=== PATIENT | male | born 1955 | race Caucasian/White ===

== ENCOUNTER 2018-09-09 12:07 | Emergency (ER) | payer BC ==
--- OUTSIDE RECORDS SUMMARY | 2018-09-09 12:17 | XMS REPORT | Continuity of Care Document ---
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 PayID: [id number] [address] [address] [place] [address] Problems Active Problems Provider Date Mixed hyperlipidemia Jacinta Saucedo MD Onset: 02/22/2014 Benign neoplasm of colon Jacinta Saucedo MD Onset: 07/06/2012 Headache Jacinta Saucedo MD Onset: 12/25/2010 Ganglion cyst of tendon sheath Jacinta Saucedo MD Onset: 12/25/2010 Low back pain Jacinta Saucedo MD Onset: 12/12/2008 Dyssomnia Jacinta Saucedo MD Onset: 12/12/2008 Induratio penis plastica Jacinta Saucedo MD Onset: 06/14/2008 Benign prostatic hypertrophy without outflow Jacinta Saucedo MD Onset: obstruction Gout Jacinta Saucedo MD Onset: 11/17/2007 Gastroesophageal reflux disease Jacinta Saucedo MD Onset: 11/17/2007 Benign essential hypertension Jacinta Saucedo MD Onset: 10/13/2006 Ex-smoker Jacinta Saucedo MD Onset: 02/18/2018 Impotence of organic origin Jacinta Saucedo MD Onset: 02/18/2018 Vitamin B deficiency Jacinta Saucedo MD Onset: 07/12/2014 Family History Date Family Member(s) Observation Comments Father due to due to () Aneurysm Father Gout Father CAD Mother Hypercholesterolemia : (age Mother due to Stroke had a second stroke 84 Years) and after 10 days Mother Alzheimer's Disease Children 5 4 girls 1 son all healthy Second Daughter Seizures anatomic problem in her brain, with headaches First Brother Congenital Heart Disease heart valve replaced. 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 Smokeless Tobacco Former Smokeless Tobacco User, Used 8 Times Daily ETOH Use Currently consumes currently 12 pack per alcohol week, on weekends. Tobacco Use Start: Unknown End: Patient is a former smoked age 15 - 30 ; smoker 08/27/17 not eligible for lung cancer screening [facility] Document: 08/27/17 - Followup: CPX Male, HTN Rechec Smoking Status Reviewed: 08/28/18 Patient is a former smoked age 15 - 30 ; smoker 08/27/17 not eligible for lung cancer screening [facility] Document: 08/27/17 - Followup: CPX Male, HTN Rechec Allergies, Adverse Reactions, Alerts Description No Known Drug Allergies Medications Active Medications SIG Qnty Indications Ordering Date Provider Sildenafil Citrate take 1 tablet 1 18tabs N52.9 Lewis, 10/22/2017 hour prior to MD Jacinta 50mg Tablets intercourse Omeprazole take 1 capsule 100caps K21.9 Lewis, 08/04/2015 20mg every other day for MD Jacinta Capsules DR 1-2 months then as needed Vitamin B-12 1 by mouth every 90tabs E53.9 Lewis, 01/09/2015 day MD Jacinta 1000mcg Tablets Sub K21.9 D51.3 Aspirin Adult Low 1 by mouth every 90tabs E78.2 Jacinta Saucedo MD 01/11 Strength day with food 81mg Tablets DR Atorvastatin Calcium take 1 tablet 90tabs E78.2 Jacinta Saucedo MD 01/11 10mg daily Tablets Allopurinol take 2 tablets 180tabs M10.9 Jacinta Saucedo MD 02/07/2012 100mg Tablets daily Colchicine 1 by mouth daily 90tabs M10.9 Jacinta Saucedo MD 01/06/2012 0.6mg Tablets as needed gout flare Lisinopril take one tablet 90tabs I10 Jacinta Saucedo MD 01/06/2012 20mg Tablets by mouth every day Indomethacin ER take one capsule 60caps M10.9 Jacinta Saucedo MD 2010 75mg by mouth twice a Capsules ER day as needed gout History Medications Azithromycin 2 tablets by 6tabs J20.9 Jordon Bhakta, 03/05/2018 - 250mg mouth on day 1 DO 03/10/2018 Tablets then 1 tablet on days 2-5 Ventolin HFA 2 puffs every 4-6 18units J20.9 Jordon Bhakta, 03/05/2018 - hours as needed DO 08/26/2018 108(90Base) mcg/Act for cough, Aerosol wheezing, shortness of breath Doxycycline Hyclate 1 by mouth twice 28tabs A69.20 Lewis, 08/18/2017 - a day 1 hour MD Jacinta 09/01/[address] before a meal Doxycycline Hyclate 1 by mouth twice 30tabs A69.20 Lewis, 01/20/2017 - a day 1 hour MD Jacinta 02/04/2017 100mg Tablets before a meal Oxycodone-Acetaminop Take 1-2 tablets 45tabs Unknown 10/09/2016 - hen by mouth every 4 11/08/2016 5-325mg Tablets (four) hours as needed Max Daily Amount: 12 tablets Diazepam Take 1 tablet (2 10tabs Unknown 10/09/2016 - 2mg Tablets mg total) by 11/08/2016 mouth nightly as needed (muscle spasm) Max Daily Amount: 2 mg Doxycycline Hyclate 1 by mouth twice 22tabs A69.20 Lewis, 10/09/2016 - a day 1 hour MD Jacinta 01/19/2017 100mg Tablets before meals--total treatment 21 days A69.22 Viagra take one tablet by 90tabs N52.9 Jacinta Saucedo, 01/26/2016 - 50mg mouth one hour prior 10/22/2017 Tablets to intercourse Omeprazole 1 by mouth every day 90tabs K21.9 Jacinta Saucedo, 08/04/2015 - 30min before a meal 08/04/2015 Tablets Omeprazole 1 by mouth every day 90caps K21.9 Jacinta Saucedo, 08/02/2015 - 20mg 30min before a meal 08/04/2015 Capsules Zostavasurya 1 dose, pharmacy to 1units Z23 Jacinta Saucedo, 07/12/2014 - administer, please 01/09/2015 [id number]/0.65ML send our office Solution Rec documentation this was given Vitamin B-12 1 by mouth daily 30tabs E53.9 Jacinta Saucedo, 07/12/2014 - with meal MD 01/09/2015 500mcg Tablets K21.9 D51.3 Metaxalone 1 By Mouth 90tabs M54.5 Jacinta Saucedo MD 07/07/2013 - 800mg Three Times A 08/26/2018 Tablets Day as Needed Prilosec OTC take one tablet 90tabs K21.9 Jacinta Saucedo MD 06/27/2006 - 20mg by mouth every 08/02/2015 Tablets day 30 min before a meal Immunizations CPT Code Status Date Vaccine Reaction Lot # 61796 Given 03/17/2015 Zoster (Zostavax) 34960 Given 07/06/2012 Tdap (Adacel) Ages 7 And Above Only 97139 Given 12/04/2011 Afluria Or Fluvirin Flu Vac Intramuscular 63268 Given 12/25/2010 Afluria Or Fluvirin Flu Vac VIS DATE 10/09/10 Intramuscular 69655 Given 03/17/2005 Immunization Td 7 Yrs Or Older [id number] Refused 02/18/2018 Flu Vaccine NOS WILL NOT GET [id number] Refused 08/27/2017 Flu Vaccine NOS [id number] Refused 02/10/2017 Influenza Virus Vaccine,Quadrivalent,Split,Preserv Free, 0.5mL,[place] [address] Refused 01/26/2016 Influenza Virus Vaccine,Quadrivalent,Split,Preserv Free, 0.5mL,[place] [address] Refused 01/09/2015 Influenza Virus Vaccine,Quadrivalent,Split,Preserv Free, 0.5mL,[place] [address]72 Refused 07/12/2014 Zoster (Zostavax) [id number] Refused 12/15/2013 Influenza Virus Vaccine,Quadrivalent,Split,Preserv Free, 0.5mL,Im Vital Signs Date Vital Result Comment 08/28/2018 1:40pm Weight 228.00 lb Heart Rate 80 /min BP Systolic 138 mmHg BP Diastolic 74 mmHg Respiratory Rate 18 /min Height 68.75 inches 5'8.75" BMI (Body Mass Index) 33.9 kg/m2 03/27/2018 2:55pm Weight 231.00 lb Heart Rate 82 /min BP Systolic 140 mmHg BP Diastolic 80 mmHg Respiratory Rate 20 /min Height 68.75 inches 5'8.75" O2 % BldC Oximetry 98 % Ra BMI (Body Mass Index) 34.4 kg/m2 03/05/2018 11:10am Body Temperature 98.3 F Apap This Am Weight 228.00 lb Heart Rate 66 /min BP Systolic 144 mmHg BP Diastolic 90 mmHg Respiratory Rate 18 /min Height 68.75 inches 5'8.75" O2 % BldC Oximetry 96 % BMI (Body Mass Index) 33.9 kg/m2 02/18/2018 8:19am Weight 226.00 lb Heart Rate 66 /min BP Systolic 148 mmHg BP Diastolic 90 mmHg BP Systolic Recheck 139 mmHg BP Diastolic Recheck 89 mmHg Respiratory Rate 18 /min Height 68.75 inches 5'8.75" BMI (Body Mass Index) 33.6 kg/m2 08/27/2017 9:30am Weight 226.00 lb Heart Rate 76 /min BP Systolic 126 mmHg BP Diastolic 78 mmHg Respiratory Rate 16 /min Height 68.75 inches 5'8.75" BMI (Body Mass Index) 33.6 kg/m2 08/18/2017 4:12pm Body Temperature 98.2 F Weight 224.00 lb Heart Rate 77 /min BP Systolic 134 mmHg BP Diastolic 92 mmHg Respiratory Rate 18 /min Height 69 inches 5'9" O2 % BldC Oximetry 98 % BMI (Body Mass Index) 33.1 kg/m2 02/10/2017 10:24am Weight 212.00 lb Heart Rate 84 /min BP Systolic 142 mmHg BP Diastolic 88 mmHg BP Systolic Recheck 142 mmHg BP Diastolic Recheck 80 mmHg Respiratory Rate 16 /min Height 69 inches 5'9" BMI (Body Mass Index) 31.3 kg/m2 01/20/2017 3:23pm Body Temperature 97.9 F Weight 210.00 lb Heart Rate 72 /min BP Systolic 122 mmHg BP Diastolic 82 mmHg Respiratory Rate 14 /min Height 69 inches 5'9" BMI (Body Mass Index) 31.0 kg/m2 10/22/2016 4:08pm Body Temperature 98.1 F Weight 215.00 lb Heart Rate 96 /min BP Systolic 120 mmHg BP Diastolic 74 mmHg Respiratory Rate 16 /min Height 69 inches 5'9" BMI (Body Mass Index) 31.7 kg/m2 10/11/2016 3:36pm Body Temperature 97.6 F Weight 222.00 lb Heart Rate 80 /min BP Systolic 146 mmHg BP Diastolic 86 mmHg Height 69 inches 5'9" O2 % BldC Oximetry 98 % BMI (Body Mass Index) 32.8 kg/m2 10/08/2016 11:09am Body Temperature 97.8 F Weight 229.00 lb Heart Rate 76 /min BP Systolic 132 mmHg BP Diastolic 80 mmHg Respiratory Rate 18 /min Height 69 inches 5'9" BMI (Body Mass Index) 33.8 kg/m2 08/06/2016 9:23am Weight 221.00 lb Heart Rate 80 /min BP Systolic 130 mmHg BP Diastolic 82 mmHg Respiratory Rate 18 /min Height 69 inches 5'9" BMI (Body Mass Index) 32.6 kg/m2 01/26/2016 8:36am Weight 224.00 lb Heart Rate 78 /min BP Systolic 140 mmHg BP Diastolic 90 mmHg Respiratory Rate 18 /min Height 69 inches 5'9" BMI (Body Mass Index) 33.1 kg/m2 07/25/2015 1:43pm Weight 222.00 lb Heart Rate 90 /min BP Systolic 128 mmHg LEFT Reg BP Diastolic 74 mmHg LEFT Reg Respiratory Rate 18 /min Height 69 inches 5'9" BMI (Body Mass Index) 32.8 kg/m2 01/09/2015 9:00am Weight 212.38 lb Heart Rate 75 /min BP Systolic 150 mmHg BP Diastolic 90 mmHg BP Systolic Recheck 150 mmHg BP Diastolic Recheck 90 mmHg Respiratory Rate 18 /min Height 69 inches 5'9" BMI (Body Mass Index) 31.4 kg/m2 08/11/2014 9:47am Weight 212.00 lb Heart Rate 74 /min BP Systolic 120 mmHg BP Diastolic 80 mmHg Respiratory Rate 18 /min Height 69 inches 5'9" BMI (Body Mass Index) 31.3 kg/m2 07/28/2014 9:57am Weight 213.00 lb Heart Rate 72 /min BP Systolic 130 mmHg BP Diastolic 80 mmHg Respiratory Rate 18 /min Height 69 inches 5'9" BMI (Body Mass Index) 31.5 kg/m2 07/19/2014 1:02pm Weight 219.00 lb Heart Rate 74 /min BP Systolic 130 mmHg BP Diastolic 80 mmHg Respiratory Rate 18 /min Height 69 inches 5'9" BMI (Body Mass Index) 32.3 kg/m2 07/12/2014 9:34am Weight 212.00 lb Heart Rate 74 /min BP Systolic 120 mmHg BP Diastolic 72 mmHg Respiratory Rate 18 /min Height 69 inches 5'9" BMI (Body Mass Index) 31.3 kg/m2 02/22/2014 9:13am Weight 222.00 lb Heart Rate 74 /min BP Systolic 142 mmHg BP Diastolic 90 mmHg Respiratory Rate 18 /min Height 69 inches 5'9" 01/11/2014 8:41am Weight 234.25 lb Heart Rate 72 /min BP Systolic 132 mmHg BP Diastolic 80 mmHg Respiratory Rate 18 /min Height 69 inches 5'9" Results Test Date Facility Test Result H/L Range Note Laboratory test finding 08/19/2018 [facility] Uric Acid 5.7 mg/dL 2.6-8.4 1 CBC with Auto Diff-[facility] 08/19/2018 [facility] WBC 5.0 K/uL 4.1-11.0 RBC 4.74 M/uL 4.60-6.10 Hemoglobin 14.5 gm/dL 13.5-18.0 Hematocrit 43.2 % 41.0-53.0 MCV 91.1 fL 80.0-97.0 MCH 30.5 pg 27.0-32.0 MCHC 33.5 g/dL 32.0-36.0 RDW 13.4 % 11.5-14.5 PLT Count 255 K/ul 140-400 MPV 7.2 FL 7.1-10.7 Neutrophil 68.4 % 35.0-75.0 Lymphocyte 20.9 % 16.0-52.0 Monocyte 7.6 % 2.0-10.0 Eosinophil 2.2 % 0.0-5.0 Basophil 0.9 % 0.0-4.0 Abs Neutrophils 3.4 K/uL 2.1-8.0 Abs Lymphocytes 1.0 K/uL 0.8-5.5 Abs Monocytes 0.4 K/uL 0.1-1.0 Abs Eosinophils 0.1 K/uL 0.0-0.5 Abs Basophils 0.0 K/uL 0.0-0.3 Laboratory test finding 08/19/2018 [facility] PSA 2.140 ng/mL 0.000-4.000 2 Comprehensive Met Panel-[facility] 08/19/2018 [facility] Sodium 141 mmol/L 135- 146 3 Potassium 4.5 mmol/L 3.5-5.2 Chloride# 104 mmol/L 97-110 4 Carbon Dioxide 29 mmol/L 24-34 Calcium 9.7 mg/dL 8.5-10.5 5 Glucose 101 mg/dL 70-105 BUN 20 mg/dL 6-26 Creatinine 0.8 mg/dL 0.5-1.4 Total Protein 6.6 g/dL 6.0-8.0 Albumin 4.3 g/dL 3.6-4.9 Globulin 2.3 g/dL 2.0-3.5 A/G Ratio 1.9 Ratio 1.0-2.2 Total Bilirubin 0.6 mg/dL 0.1-1.3 Alkaline Phosphatase 58 U/L 24-140 Alt 18 U/L 3-42 Ast 18 U/L 8-42 Anion Gap 8 mmol/L 5-15 6 Female Egfr 81 >60 7 Male Egfr 95 >60 8 Lipid 08/19/2018 [facility] Cholesterol 146 mg/dL 50-199 Triglycerides 75 mg/dL 30-200 HDL 57 mg/dL 29-71 9 Chol/ HDL Ratio 2.6 ratio Low 4.0-6.7 VLDL 15 mg/dL 2-29 LDL (Calc) 74 mg/dL 20-99 10 Laboratory test 08/19/2018 [facility] CPK 51 U/L 12-199 finding Laboratory test 03/27/2018 [facility] verrucous 11, 12 finding [facility] Laboratory test 02/11/2018 [facility] PSA 2.340 ng/mL 0.000-4.000 13, 14 finding Comprehensive Met 02/11/2018 [facility] Sodium 140 mmol/L 135-146 15 Panel-[facility] Potassium 4.2 mmol/L 3.5-5.2 Chloride# 101 mmol/L 97-110 16 Carbon Dioxide 28 mmol/L 24-34 Glucose 92 mg/dL 70-105 BUN 19 mg/dL 6-26 Creatinine 0.9 mg/dL 0.5-1.4 Calcium 9.6 mg/dL 8.5-10.2 Total Protein 6.9 g/dL 6.0-8.0 Albumin 4.5 g/dL 3.6-4.9 Globulin 2.4 g/dL 2.0-3.5 A/G Ratio 1.9 Ratio 1.0-2.2 Total Bilirubin 0.7 mg/dL 0.1-1.3 Alkaline Phosphatase 63 U/L 24-140 Alt 22 U/L 3-42 Ast 18 U/L 8-42 Love Egfr >60 >60 17 Non Love Egfr >60 >60 18 Anion Gap 11 mmol/L 5-15 19 Laboratory test finding 02/11/2018 [facility] CPK 71 U/L 12-199 Lipid 02/11/2018 [facility] Cholesterol 154 mg/dL 50-199 Triglycerides 87 mg/dL 30-200 HDL 61 mg/dL 29-71 20 Chol/ HDL Ratio 2.5 ratio Low 4.0-6.7 VLDL 17 mg/dL 2-29 LDL (Calc) 76 mg/dL 20-99 21 Lipid 08/19/2017 [facility] Cholesterol 141 mg/dL 50-199 22 Triglycerides 64 mg/dL 30-200 HDL 59 mg/dL 29-71 23 Chol/ HDL Ratio 2.4 ratio Low 4.0-6.7 VLDL 13 mg/dL 2-29 LDL (Calc) 69 mg/dL 20-99 24 Laboratory test finding 08/19/2017 [facility] Esr 9 mm/hr 0-15 CRP (C-Reactive) 0.16 mg/dL 0.00-0.75 CBC With Auto Diff 08/19/2017 [facility] WBC 6.2 K/uL 4.1-11.0 RBC 4.63 M/uL 4.60-6.10 Hemoglobin 14.3 gm/dL 13.5-18.0 Hematocrit 41.5 % 41.0-53.0 MCV 89.7 fL 80.0-97.0 MCH 30.9 pg 27.0-32.0 MCHC 34.5 g/dL 32.0-36.0 RDW 13.5 % 11.5-14.5 PLT Count 254 K/ul 140-400 MPV 7.4 FL 7.1-10.7 Neutrophil 66.1 % 35.0-75.0 Lymphocyte 23.1 % 16.0-52.0 Monocyte 7.5 % 2.0-10.0 Eosinophil 2.4 % 0.0-5.0 Basophil 0.9 % 0.0-4.0 Abs Neutrophils 4.1 K/uL 2.1-8.0 Abs Lymphocytes 1.4 K/uL 0.8-5.5 Abs Monocytes 0.5 K/uL 0.1-1.0 Abs Eosinophils 0.2 K/uL 0.0-0.5 Abs Basophils 0.1 K/uL 0.0-0.3 Laboratory test finding 08/19/2017 [facility] TSH 0.85 uIU/mL 0.35-4.94 Uric Acid 5.9 mg/dL 2.6-8.4 PSA 3.070 ng/mL 0.000-4.000 25 Comprehensive Met Panel-[facility] 08/19/2017 [facility] Sodium 143 mmol/L 135- 146 26 Potassium 4.0 mmol/L 3.5-5.2 Chloride# 106 mmol/L 97-110 27 Carbon Dioxide 27 mmol/L 24-34 Glucose 94 mg/dL 70-105 BUN 19 mg/dL 6-26 Creatinine 0.8 mg/dL 0.5-1.4 Calcium 9.4 mg/dL 8.5-10.2 Total Protein 6.6 g/dL 6.0-8.0 Albumin 4.4 g/dL 3.6-4.9 Globulin 2.2 g/dL 2.0-3.5 A/G Ratio 2.0 Ratio 1.0-2.2 Total Bilirubin 0.6 mg/dL 0.1-1.3 Alkaline Phosphatase 55 U/L 24-140 Alt 20 U/L 3-42 Ast 15 U/L 8-42 Love Egfr >60 >60 28 Non Love Egfr >60 >60 29 Anion Gap 10 mmol/L 5-15 30 Laboratory test finding 08/19/2017 [facility] CPK 49 U/L 12-199 Comprehensive Metabolic (CMP) 02/05/2017 [facility] Sodium 141 mmol/L 135- 146 31 Potassium 4.4 mmol/L 3.5-5.2 Chloride# 103 mmol/L 97-110 32 Carbon Dioxide 30 mmol/L 24-34 Glucose 84 mg/dL 70-105 Creatinine 0.8 mg/dL 0.5-1.4 Calcium 9.7 mg/dL 8.5-10.2 Total Protein 6.6 g/dL 6.0-8.0 Albumin 4.5 g/dL 3.6-4.9 Globulin 2.1 g/dL 2.0-3.5 A/G Ratio 2.1 Ratio 1.0-2.2 Total Bilirubin 0.6 mg/dL 0.1-1.3 Alkaline Phosphatase 48 U/L 24-140 Alt 19 U/L 3-42 Ast 16 U/L 8-42 Love Egfr >60 >60 33 Non Love Egfr >60 >60 34 Anion Gap 8 mmol/L 7-16 35 BUN 16 mg/dL 6-26 Lipid 02/05/2017 [facility] Cholesterol 146 mg/dL 50-199 Triglycerides 82 mg/dL 30-200 HDL 60 mg/dL 29-71 36 Chol/ HDL Ratio 2.5 ratio Low 4.0-6.7 VLDL 16 mg/dL 2-29 LDL (Calc) 70 mg/dL 20-99 37 Laboratory test finding 02/05/2017 [facility] CPK 48 U/L 12-199 Uric Acid 5.3 mg/dL 2.6-8.4 CBC With Auto Diff 01/21/2017 [facility] WBC 5.8 K/uL 4.1-11.0 RBC 4.79 M/uL 4.60-6.10 Hemoglobin 14.7 gm/dL 13.5-18.0 Hematocrit 44.2 % 41.0-53.0 MCV 92.3 fL 80.0-97.0 MCH 30.8 pg 27.0-32.0 MCHC 33.3 g/dL 32.0-36.0 RDW 13.4 % 11.5-14.5 PLT Count 262 K/ul 140-400 MPV 7.5 FL 7.1-10.7 Neutrophil 71.5 % 35.0-75.0 Lymphocyte 21.3 % 16.0-52.0 Monocyte 2.8 % 2.0-10.0 Eosinophil 1.3 % 0.0-5.0 Basophil 3.1 % 0.0-4.0 Abs Neutrophils 4.2 K/uL 2.1-8.0 Abs Lymphocytes 1.2 K/uL 0.8-5.5 Abs Monocytes 0.2 K/uL 0.1-1.0 Abs Eosinophils 0.1 K/uL 0.0-0.5 Abs Basophils 0.2 K/uL 0.0-0.3 Laboratory test finding 01/21/2017 [facility] Esr 18 mm/hr High 0-15 CRP (C-Reactive) 0.67 mg/dL 0.00-0.75 Comprehensive Met Panel-[facility] 01/21/2017 [facility] Sodium 142 mmol/L 135- 146 38 Potassium 4.6 mmol/L 3.5-5.2 Chloride# 105 mmol/L 97-110 39 Carbon Dioxide 27 mmol/L 24-34 Glucose 117 mg/dL High 70-105 Creatinine 0.8 mg/dL 0.5-1.4 Calcium 9.8 mg/dL 8.5-10.2 Total Protein 6.9 g/dL 6.0-8.0 Albumin 4.7 g/dL 3.6-4.9 Globulin 2.2 g/dL 2.0-3.5 A/G Ratio 2.1 Ratio 1.0-2.2 Total Bilirubin 0.5 mg/dL 0.1-1.3 Alkaline Phosphatase 55 U/L 24-140 Alt 20 U/L 3-42 Ast 19 U/L 8-42 Love Egfr >60 >60 40 Non Love Egfr >60 >60 41 Anion Gap 10 mmol/L 7-16 42 BUN 17 mg/dL 6-26 Laboratory test finding 01/21/2017 [facility] TSH 0.32 uIU/mL Low 0.35-4.94 Lyme Igm/Igg AB -RL 01/21/2017 [facility] Lyme Igm/Igg POSITIVE (Neg) 43 AB @ Z#Lyme Confirmation Abs 01/21/2017 [facility] Lyme Igg B Positive 44 Blood Yvan Lyme Igm B Yvan Positive 45 Laboratory test 10/09/2016 [facility] Troponin I <0.02 ng/mL (0.00- 0.10) 46 finding Laboratory test 10/09/2016 [facility] Lipase 97 U/L (65-230) 47 finding Aptt 10/09/2016 N2N/CCD Import aPTT 27.9 s 22.0 - 32.6 Protime-Inr 10/09/2016 N2N/CCD Import Inr 0.98 1 Protime 10.1 s 9.2 - 11.9 CBC and 10/09/2016 N2N/CCD Import Basophils 0.0 10*3/uL 0.0 - 0.2 differential Absolute Basophils Relative 0.7 % 0.0 - 4.0 Eosinophils Absolute 0.1 10*3/uL 0.0 - 0.5 Eosinophils Relative 1.6 % 0.0 - 5.0 Hematocrit 37.2 % Low 41.0 - 53.0 Hemoglobin 12.8 g/dL Low 13.5 - 18.0 Lymphocytes Absolute 0.9 10*3/uL Low 1.2 - 4.8 Lymphocytes Relative 14.3 % Low 16.0 - 52.0 MCH 30.8 pg 27.0 - 32.0 MCHC 34.4 g/dL 32.0 - 36.0 MCV 89.7 fL 80.0 - 95.0 MPV 7.0 fL Low 7.1 - 10.7 Monocytes Absolute 0.5 10*3/uL 0.0 - 0.8 Monocytes Relative 8.3 % High 0.0 - 8.0 Neutrophils % 75.1 % High 35.0 - 75.0 Neutrophils Absolute 4.8 10*3/uL 1.8 - 7.7 Platelets 257 10*3/uL 150 - 450 RBC 4.15 10*6/uL Low 4.60 - 6.10 RDW 13.3 % 10.5 - 14.5 WBC 6.4 10*3/uL 4.1 - 11.0 Comprehensive metabolic 10/09/2016 N2N/CCD Import Alb/Glob ratio 0.9 Ratio panel Albumin 3.2 g/dL 3.2 - 4.5 Alkaline Phosphatase 177 U/L High 45 - 117 Alt 83 U/L High 12 - 78 Anion Gap 9 mmol/L 7 - 16 Ast 34 U/L 11 - 39 BUN/Creatinine Ratio 16.7 Ratio 10.0 - 20.0 Bilirubin, Total 0.3 mg/dL 0.0 - 1.0 Calcium 8.8 mg/dL 8.4 - 10.2 Chloride 107 mmol/L 100 - 108 Co2 26 mmol/L 22 - 31 Creatinine 0.72 mg/dL Low 0.80 - 1.30 GFR MDRD Af Amer >60 >59 ml/min/1.73m2 GFR MDRD Non Af Amer >60 >59 ml/min/1.73m2 Globulin 3.7 g/dL 2.7 - 4.3 Glom Filt Rate, Est See Notes Glucose 108 mg/dL High 70 - 99 Potassium 3.5 mmol/L Low 3.6 - 5.2 Protein, Total 6.9 g/dL 6.4 - 8.2 Sodium 142 mmol/L 136 - 145 Urea nitrogen 12 mg/dL 7 - 24 Lipid panel 10/09/2016 N2N/CCD Import Chol/HDL Ratio 3.7 Ratio Cholesterol 119 mg/dL 0 - 200 HDL 32 mg/dL Low >40 LDL Calculated 61 mg/dL <130 Triglycerides 131 mg/dL 30 - 200 Magnesium 10/09/2016 N2N/CCD Import Magnesium 2.1 mg/dL 1.7 - 2.4 CBC With Auto Diff 10/08/2016 [facility] WBC 4.9 K/uL 4.1-11.0 RBC 3.99 M/uL Low 4.60-6.10 Hemoglobin 11.9 gm/dL Low 13.5-18.0 Hematocrit 36.4 % Low 41.0-53.0 MCV 91.3 fL 80.0-97.0 MCH 29.8 pg 27.0-32.0 MCHC 32.7 g/dL 32.0-36.0 RDW 13.6 % 11.5-14.5 PLT Count 288 K/ul 140-400 Neutrophil 69.1 % 35.0-75.0 Lymphocyte 19.9 % 16.0-52.0 Monocyte 8.3 % 2.0-10.0 Eosinophil 1.8 % 0.0-5.0 Basophil 0.9 % 0.0-4.0 Abs Neutrophils 3.4 K/uL 2.1-8.0 Abs Lymphocytes 1.0 K/uL 0.8-5.5 Abs Monocytes 0.4 K/uL 0.1-1.0 Abs Eosinophils 0.1 K/uL 0.0-0.5 Abs Basophils 0.0 K/uL 0.0-0.3 Comprehensive Met Panel-[facility] 10/08/2016 [facility] Sodium 142 mmol/L 135- 146 48 Potassium 4.2 mmol/L 3.5-5.2 Chloride# 105 mmol/L 97-110 49 Carbon Dioxide 27 mmol/L 24-34 Glucose 112 mg/dL High 70-105 BUN 13 mg/dL 6-26 Creatinine 0.8 mg/dL 0.5-1.4 Calcium 9.1 mg/dL 8.5-10.2 Total Protein 6.2 g/dL 6.0-8.0 Albumin 3.7 g/dL 3.6-4.9 Globulin 2.5 g/dL 2.0-3.5 A/G Ratio 1.5 Ratio 1.0-2.2 Total Bilirubin 0.4 mg/dL 0.1-1.3 Alkaline Phosphatase 166 U/L High 24-140 Alt 72 U/L High 3-42 Ast 31 U/L 8-42 Love Egfr >60 >60 50 Non Love Egfr >60 >60 51 Anion Gap 14 mmol/L 7-16 52 Laboratory test finding 10/08/2016 [facility] Lipase 6 U/L Low 11-82 Lyme Igm/Igg AB -RL 10/08/2016 [facility] Lyme Igm/Igg AB @ POSITIVE (Neg) 53 Z#Lyme Confirmation Abs 10/08/2016 [facility] Lyme Igg B Yvan Positive 54 Blood Lyme Igm B Yvan Positive 55 Comprehensive Metabolic (CMP) 07/30/2016 [facility] Sodium 139 mmol/L 135- 146 56, 57 Potassium 4.5 mmol/L 3.5-5.2 Chloride# 104 mmol/L 97-110 58 Carbon Dioxide 27 mmol/L 24-34 Glucose 100 mg/dL 70-105 BUN 23 mg/dL 6-26 Creatinine 0.8 mg/dL 0.5-1.4 Calcium 9.6 mg/dL 8.5-10.2 Total Protein 6.8 g/dL 6.0-8.0 Albumin 4.5 g/dL 3.6-4.9 Globulin 2.3 g/dL 2.0-3.5 A/G Ratio 2.0 Ratio 1.0-2.2 Total Bilirubin 0.5 mg/dL 0.1-1.3 Alkaline Phosphatase 58 U/L 24-140 Alt 21 U/L 3-42 Ast 21 U/L 8-42 Love Egfr >60 >60 59 Non Love Egfr >60 >60 60 Anion Gap 13 mmol/L 7-16 61 Lipid 07/30/2016 [facility] Cholesterol 147 mg/dL 50-199 Triglycerides 67 mg/dL 30-200 HDL 62 mg/dL 29-71 62 Chol/ HDL Ratio 2.4 ratio Low 4.0-6.7 VLDL 13 mg/dL 2-29 LDL (Calc) 72 mg/dL 20-99 63 Laboratory test finding 07/30/2016 [facility] CPK 86 U/L 12-199 Uric Acid 5.1 mg/dL 2.6-8.4 CBC With Auto Diff 07/30/2016 [facility] WBC 4.5 K/uL 4.1-11.0 RBC 4.59 M/uL Low 4.60-6.10 Hemoglobin 13.9 gm/dL 13.5-18.0 Hematocrit 41.8 % 41.0-53.0 MCV 91.0 fL 80.0-97.0 MCH 30.4 pg 27.0-32.0 MCHC 33.4 g/dL 32.0-36.0 RDW 13.6 % 11.5-14.5 PLT Count 259 K/ul 140-400 Neutrophil 62.8 % 35.0-75.0 Lymphocyte 24.6 % 16.0-52.0 Monocyte 9.8 % 2.0-10.0 Eosinophil 2.1 % 0.0-5.0 Basophil 0.7 % 0.0-4.0 Abs Neutrophils 2.9 K/uL 2.1-8.0 Abs Lymphocytes 1.1 K/uL 0.8-5.5 Abs Monocytes 0.4 K/uL 0.1-1.0 Abs Eosinophils 0.1 K/uL 0.0-0.5 Abs Basophils 0.0 K/uL 0.0-0.3 Laboratory test 07/30/2016 [facility] PSA 2.410 ng/mL 0.000-4.000 64 finding Microalb/Creat Panel 07/30/2016 [facility] Creatinine, 73.2 mg/dL Urine Microalb/Creat Urine 14.35 ug/mgCreat 0.00-30.00 Microalbumin 10.5 ug/ml 0.0-20.0 Laboratory test 07/30/2016 [facility] Hepatitis C Virus NONREACTIVE Nonreactive finding Antibody Vitamin B12 414 pg/mL 180-914 Comprehensive Metabolic (CMP) 01/22/2016 [facility] Sodium 135 mmol/L 134- 142 Potassium 4.2 mmol/L 3.5-5.2 Chloride 101 mmol/L 97-109 Carbon Dioxide 30 mmol/L 24-34 Glucose 98 mg/dL 70-105 BUN 15 mg/dL 6-26 Creatinine 0.8 mg/dL 0.5-1.4 Calcium 9.4 mg/dL 8.5-10.2 Total Protein 6.8 g/dL 6.0-8.0 Albumin 4.5 g/dL 3.6-4.9 Globulin 2.3 g/dL 2.0-3.5 A/G Ratio 2.0 Ratio 1.0-2.2 Total Bilirubin 0.7 mg/dL 0.1-1.3 Alkaline Phosphatase 54 U/L 24-140 Alt 20 U/L 3-42 Ast 19 U/L 8-42 Anion Gap 8 mmol/L 6-14 Love Egfr >60 >60 65 Non Love Egfr >60 >60 66 Lipid 01/22/2016 [facility] Cholesterol 149 mg/dL 50-199 Triglycerides 79 mg/dL 30-200 HDL 56 mg/dL 29-71 67 Chol/ HDL Ratio 2.7 ratio Low 4.0-6.7 VLDL 16 mg/dL 2-29 LDL (Calc) 77 mg/dL 20-99 68 Laboratory test finding 01/22/2016 [facility] CPK 70 U/L 12-199 Uric Acid 5.9 mg/dL 2.6-8.4 Comprehensive Metabolic (CMP) 07/17/2015 [facility] Sodium 140 mmol/L 134- 142 69 Potassium 4.1 mmol/L 3.5-5.2 Chloride 107 mmol/L 97-109 Carbon Dioxide 25 mmol/L 24-34 Glucose 91 mg/dL 70-105 BUN 22 mg/dL 6-26 Creatinine 0.8 mg/dL 0.5-1.4 Calcium 9.3 mg/dL 8.5-10.2 Total Protein 6.8 g/dL 6.0-8.0 Albumin 4.3 g/dL 3.6-4.9 Globulin 2.5 g/dL 2.0-3.5 A/G Ratio 1.7 Ratio 1.0-2.2 Total Bilirubin 0.6 mg/dL 0.1-1.3 Alkaline Phosphatase 58 U/L 24-140 Alt 20 U/L 3-42 Ast 23 U/L 8-42 Anion Gap 12 mmol/L 6-14 Love Egfr >60 >60 70 Non Love Egfr >60 >60 71 Lipid 07/17/2015 [facility] Cholesterol 131 mg/dL 50-199 Triglycerides 98 mg/dL 30-200 HDL 56 mg/dL 29-71 72 Chol/ HDL Ratio 2.3 ratio Low 4.0-6.7 VLDL 20 mg/dL 2-29 LDL (Calc) 55 mg/dL 20-99 73 Laboratory test finding 07/17/2015 [facility] CPK 157 U/L 12-199 Uric Acid 6.7 mg/dL 2.6-8.4 Vitamin B12 386 pg/mL 180-914 CBC With Auto Diff 07/17/2015 [facility] WBC 6.0 K/uL 4.1-11.0 RBC 4.56 M/uL Low 4.60-6.10 Hemoglobin 13.7 gm/dL 13.5-18.0 Hematocrit 42.1 % 41.0-53.0 MCV 92.3 fL 80.0-97.0 MCH 30.0 pg 27.0-32.0 MCHC 32.4 g/dL 32.0-36.0 RDW 13.0 % 11.5-14.5 PLT Count 249 K/ul 140-400 Neutrophil 68.8 % 35.0-75.0 Lymphocyte 21.5 % 16.0-52.0 Monocyte 7.2 % 2.0-10.0 Eosinophil 1.6 % 0.0-5.0 Basophil 0.9 % 0.0-4.0 Abs Neutrophils 4.1 K/uL 2.1-8.0 Abs Lymphocytes 1.3 K/uL 0.8-5.5 Abs Monocytes 0.4 K/uL 0.1-1.0 Abs Eosinophils 0.1 K/uL 0.0-0.5 Abs Basophils 0.1 K/uL 0.0-0.3 Microalb/Creat Panel 07/17/2015 [facility] Creatinine, Urine 130.1 mg/dL Microalb/Creat Urine 4.69 ug/mgCreat 0.00-30.00 Microalbumin 6.1 ug/ml 0.0-20.0 Comprehensive Metabolic (CMP) 01/02/2015 [facility] Sodium 137 mmol/L 134- 142 Potassium 4.3 mmol/L 3.5-5.2 Chloride 105 mmol/L 97-109 Carbon Dioxide 26 mmol/L 24-34 Glucose 111 mg/dL High 70-105 BUN 22 mg/dL 6-26 Creatinine 0.8 mg/dL 0.5-1.4 Calcium 9.4 mg/dL 8.5-10.2 Total Protein 6.7 g/dL 6.0-8.0 Albumin 4.3 g/dL 3.6-4.9 Globulin 2.4 g/dL 2.0-3.5 A/G Ratio 1.8 Ratio 1.0-2.2 Total Bilirubin 0.7 mg/dL 0.1-1.3 Alkaline Phosphatase 59 U/L 24-140 Alt 24 U/L 3-42 Ast 20 U/L 8-42 Anion Gap 10 mmol/L 6-14 Love Egfr >60 >60 74 Non Love Egfr >60 >60 75 Lipid 01/02/2015 [facility] Cholesterol 134 mg/dL 50-199 Triglycerides 63 mg/dL 30-200 HDL 54 mg/dL 29-71 76 Chol/ HDL Ratio 2.5 ratio Low 4.0-6.7 VLDL 13 mg/dL 2-29 LDL (Calc) 67 mg/dL 20-99 77 Laboratory test finding 01/02/2015 [facility] CPK 62 U/L 12-199 Uric Acid 6.0 mg/dL 2.6-8.4 Vitamin B12 242 pg/mL 180-914 Laboratory test finding 07/28/2014 [facility] SEE NOTE 78 Laboratory test finding 07/19/2014 [facility] SEE NOTE 79 Comprehensive Metabolic 07/05/2014 [facility] Sodium 140 mmol/L 134-142 80 (CMP) Potassium 4.8 mmol/L 3.5-5.2 Chloride 106 mmol/L 97-109 Carbon Dioxide 28 mmol/L 24-34 Glucose 109 mg/dL High 70-105 BUN 24 mg/dL 6-26 Creatinine 0.8 mg/dL 0.5-1.4 Calcium 9.4 mg/dL 8.5-10.2 Total Protein 6.7 g/dL 6.0-8.0 Albumin 4.4 g/dL 3.6-4.9 Globulin 2.3 g/dL 2.0-3.5 A/G Ratio 1.9 Ratio 1.0-2.2 Total Bilirubin 0.4 mg/dL 0.1-1.3 Alkaline Phosphatase 49 U/L 24-140 Alt 27 U/L 3-42 Ast 20 U/L 8-42 Anion Gap 11 mmol/L 6-14 Love Egfr >60 >60 81 Non Love Egfr >60 >60 82 Lipid 07/05/2014 [facility] Cholesterol 144 mg/dL 50-199 Triglycerides 61 mg/dL 30-200 HDL 64 mg/dL 29-71 83 Chol/ HDL Ratio 2.3 ratio Low 4.0-6.7 VLDL 12 mg/dL 2-29 LDL (Calc) 68 mg/dL 20-99 84 Laboratory test finding 07/05/2014 [facility] PSA 2.370 ng/mL 0.000-4.000 85 Vitamin B12 288 pg/mL 180-914 Magnesium 2.3 mg/dL 1.5-2.7 Microalb/Creat Panel 07/05/2014 [facility] Creatinine, Urine 159.4 mg/dL Microalb/Creat Urine 3.76 ug/mgCreat 0.00-30.00 Microalbumin 6.0 ug/ml 0.0-20.0 Laboratory test finding 07/05/2014 [facility] CPK 58 U/L 12-199 Uric Acid 5.4 mg/dL 2.6-8.4 CBC With Auto Diff 07/05/2014 [facility] WBC 5.4 K/uL 4.1-11.0 RBC 4.58 M/uL Low 4.60-6.10 Hemoglobin 14.3 gm/dL 13.5-18.0 Hematocrit 42.9 % 41.0-53.0 MCV 93.6 fL 80.0-97.0 MCH 31.2 pg 27.0-32.0 MCHC 33.3 g/dL 32.0-36.0 RDW 13.1 % 11.5-14.5 PLT Count 246 K/ul 140-400 Neutrophil 64.9 % 35.0-75.0 Lymphocyte 24.9 % 16.0-52.0 Monocyte 7.1 % 2.0-10.0 Eosinophil 2.1 % 0.0-5.0 Basophil 1.0 % 0.0-4.0 Abs Neutrophils 3.5 K/uL 2.1-8.0 Abs Lymphocytes 1.3 K/uL 0.8-5.5 Abmon 0.4 K/uL 0.1-1.0 Abs Eosinophils 0.1 K/uL 0.0-0.5 Abs Basophils 0.1 K/uL 0.0-0.3 Lipid Panel 02/15/2014 [facility] Chol/HDL Ratio 2.6 ratio Cholesterol 162.0 mg/dL 50.0-199.0 HDL 63.0 mg/dL 29.0-67.0 LDL, Calculated 83.0 mg/dL 20.0-129.0 Triglycerides 80.0 mg/dL 30.0-249.0 vLDL 16.0 ng/dL Laboratory test finding 02/15/2014 [facility] Alt 37.0 U/L 21.0- 72.0 Ast 27.0 U/L 17.0-59.0 ck 54.0 26.0-190.0 Lipid Panel 01/05/2014 [facility] Import Chol/HDL Ratio 2.6 ratio Cholesterol 179.0 mg/dL 50.0-199.0 HDL 68.0 mg/dL High 29.0-67.0 LDL, Calculated 101.4 mg/dL 20.0-129.0 Triglycerides 48.0 mg/dL 30.0-249.0 vLDL 9.6 ng/dL Laboratory test finding 01/05/2014 [facility] Import A/G Ratio 1.7 ratio 1.6-2.2 Albumin 4.6 g/dL 3.5-5.0 Alk. Phos. 56.0 U/L 30.0-126.0 Alt 42.0 U/L 21.0-72.0 Anion Gap 6.0 mmol/L Low 10.0-20.0 Ast 29.0 U/L 17.0-59.0 BUN 22.0 mg/dL High 9.0-21.0 BUN/Creat Ratio 22.0 ratio High 12.0-20.0 Calcium 9.7 mg/dL 8.7-10.5 Chloride 106.0 mmol/L 98.0-107.0 Co2 28.0 mmol/L 22.0-30.0 Creatinine-Serum 1.0 mg/dL 0.8-1.5 Globulin 2.7 g/dL 2.7-4.3 Glucose 114.0 mg/dL High 75.0-110.0 Potasium 4.8 mmol/L 3.6-5.0 Sodium 140.0 mmil/L 137.0-145.0 Total Bilirubin 0.6 mg/dL 0.2-1.3 Total Protein 7.3 g/dL 6.3-8.2 Uric Acid 5.5 mg/dL 3.5-7.2 86 eGFR 79.4 mi/minper1.73 87 Laboratory test finding 06/29/2013 [facility] Import % Baso. 1.5 % 0.0-2.0 % Eos. 1.9 % 0.0-4.0 % Lymph 24 % 20-44 % [place] 8.6 % 2.0-10.0 % Romeo 64 % 50-70 A/G Ratio 1.9 ratio 1.6-2.2 Absolute Baso. 0.1 K/ul 0.0-0.3 Absolute Eos. 0.1 K/ul 0.0-0.5 Absolute Lymph. 1.4 K/ul 0.8-4.8 Absolute Horry. 0.5 K/ul 0.1-1.0 Absolute Romeo. 3.57 K/ul 2.05-7.63 Albumin 4.3 g/dL 3.5-5.0 Alk. Phos. 48.0 U/L 30.0-126.0 Alt 34.0 U/L 21.0-72.0 Anion Gap 9.0 mmol/L Low 10.0-20.0 Ast 25.0 U/L 17.0-59.0 BUN 20.0 mg/dL 9.0-21.0 BUN/Creat Ratio 22.2 ratio High 12.0-20.0 Calcium 9.2 mg/dL 8.7-10.5 Chloride 107.0 mmol/L 98.0-107.0 Co2 25.0 mmol/L 22.0-30.0 Creatinine-Serum 0.9 mg/dL 0.8-1.5 Globulin 2.3 g/dL Low 2.7-4.3 Glucose 111.0 mg/dL High 75.0-110.0 HCT 40.1 % 37.0-51.0 HGB 13.5 Gm/dl 12.0-16.0 MCH 32.0 pg 26.0-32.0 MCHC 33.5 g/dL 31.0-36.0 MCV 95.3 Fl 80.0-97.0 MPV 5.9 fL Low 6.0-10.0 Magnesium 2.4 High 1.7-2.3 PLT 251 K/ul 140-440 Potasium 4.2 mmol/L 3.6-5.0 RBC 4.2 M/ul 4.2-6.3 RDW 12.1 % 11.5-14.5 Sodium 141.0 mmil/L 137.0-145.0 Total Bilirubin 0.6 mg/dL 0.2-1.3 Total Protein 6.6 g/dL 6.3-8.2 Uric Acid 5.4 mg/dL 2.1-7.4 88 WBC 5.6 K/ul 4.1-10.9 eGFR 88.1 mi/minper1.73 89 Lipid Panel 06/29/2013 [facility] Chol/HDL Ratio 2.6 ratio Cholesterol 179.0 mg/dL 50.0-199.0 HDL 68.0 mg/dL High 29.0-67.0 LDL, Calculated 96.0 mg/dL 20.0-129.0 Triglycerides 75.0 mg/dL 30.0-249.0 vLDL 15.0 ng/dL Urine 06/29/2013 [facility] Microalb/Creat 7.2 0.0-30.0 Microalbumin/Creat Ratio ug/ngcrt Urine Creatinine 69.9 mg/dL Urine Microalbumin 5.0 mg/L <18.5 Laboratory test finding 12/29/2012 [facility] BUN 20.0 mg/dL 9.0- 21.0 BUN/Creat Ratio 22.2 ratio High 12.0-20.0 Calcium 9.8 mg/dL 8.7-10.5 Chloride 105.0 mmol/L 98.0-107.0 Co2 24.0 mmol/L 22.0-30.0 Creatinine-Serum 0.9 mg/dL 0.8-1.5 Glucose 97.0 mg/dL 75.0-110.0 Potasium 4.6 mmol/L 3.6-5.0 Sodium 140.0 mmil/L 137.0-145.0 eGFR 91.8 Laboratory test finding 12/29/2012 [facility] Magnesium 2.2 mg/dL 1.7-2.3 Uric Acid 6.3 mg/dL 2.1-7.4 1 before visit 08/2018 2 Beginning 05/12/06 PSA values assayed at [facility] uses chemiluminescence methodology manufactured by [employer] for use on the DXI analyzer. Values obtained with different assay methods or kits can not be used interchangeably. Serum PSA measurement is not an absolute test for malignancy. The PSA value should be used in conjunction with information available from clinical evaluation and other diagnostic procedures. 3 Updated reference range on new analyzer 4 Updated reference range on new analyzer 5 Updated reference range 07-15-2018 6 Updated Reference Range 7 Concerning GFR Guidelines for Americans: Normal function or mild renal disease, if clinically at risk: >/=60 mL/min Moderately decreased: 30-59 Severely decreased: 15-29 Renal failure: <15 There is reduced accuracy above 60ml/min/1.73 m squared, but the numeric value may be clinically useful in the near 60 range 8 Concerning GFR Guidelines: Normal function or mild renal disease, if clinically at risk: >/=60 mL/min Moderately decreased: 30-59 Severely decreased: 15-29 Renal failure: <15 There is reduced accuracy above 60ml/min/1.73 m squared, but the numeric value may be clinically useful in the near 60 range Glomerular Filtration Rate (GFR) is estimated based on the CKD-EPI equation, which assumes a steady state for creatinine as recommended by the National Kidney Disease Education Program in conjunction with the National Institutes of Health and the National Kidney Foundation. Clinical conditions in which it may be necessary to measure GFR by using clearance methods include extremes of age and body size, severe malnutrition or obesity, diseases of skeletal muscle, paraplegia or quadriplegia, vegetarian diet, rapidly changing kidney function, and calculation of the dose of potentially toxic drugs that are excreted by the kidneys. 9 Per NCEP ATP III Guidelines: Results lower than 40 mg/dL are suggestive of increased risk for coronary artery disease. Results > or=to 60 mg/dL are considered a negative risk factor. 10 Per NCEP ATP III Guidelines: Normal Population <130 Patients with medical conditions: CHD/DM Optimal: <100 Borderline high: 130-159 High: 160-189 Very high: >189 11 Fastin hours 12 Laboratory [place] [id number] Surgical Pathology Report Specimen(s) Received A: Skin tag with keratosis, posterior to right ear Clinical Diagnosis and History ICD-10 D48.5. Skin tag was pedunculated with a lot of scaliness vs. verrucous, so removed with electrocautery and submitted to pathology. Diagnosis SKIN, POSTERIOR TO RIGHT EAR VERRUCOUS. Gross Description Specimen received in formalin labeled with the patient's name is a 0.5 x 0.3 x 0.2 cm papillary verrucoid kiser-white polypoid lesion. The specimen is inked at the potential base and submitted in toto for microscopic examination. (1 block) fernando cardenas/maral Technical component processed at [facility] Clinical Laboratories, Histopathology, [address] [place] [address], [facility]. Diagnosis and reporting performed at [facility], [address] [place] [address]. Reported: 03/31/2018 15:43 Electronically Signed Out By Matt Burnett M.D. [facility] This report may include immunohistochemical or in-situ hybridization results. Testing was developed and the performance characteristics determined by [facility] as required by CLIA '88. The FDA has determined that approval for specific use is not necessary for clinical use. The quality of all stains including positive and negative controls for all immunohistochemical and/or special stains were reviewed and considered appropriate ICD9 Codes A63.0 CPT4 codes A: [id number] Unless otherwise specified, testing performed by [facility], [address] [id number] 13 before vsiit 02/2018 14 Beginning 05/12/06 PSA values assayed at [facility] laboratories uses chemiluminescence methodology manufactured by [employer] for use on the DXI analyzer. Values obtained with different assay methods or kits can not be used interchangeably. Serum PSA measurement is not an absolute test for malignancy. The PSA value should be used in conjunction with information available from clinical evaluation and other diagnostic procedures. 15 Updated reference range on new analyzer 16 Updated reference range on new analyzer 17 Concerning GFR Guidelines for Americans: Normal function or mild renal disease, if clinically at risk: >/=60 mL/min Moderately decreased: 30-59 Severely decreased: 15-29 Renal failure: <15 18 Concerning GFR Guidelines: Normal function or mild renal disease, if clinically at risk: >/=60 mL/min Moderately decreased: 30-59 Severely decreased: 15-29 Renal failure: <15 Glomerular Filtration Rate (GFR) is estimated based on the MDRD equation, which assumes a steady state for creatinine as recommended by the National Kidney Disease Education Program in conjunction with the National Institutes of Health and the National Kidney Foundation. Clinical conditions in which it may be necessary to measure GFR by using clearance methods include extremes of age and body size, severe malnutrition or obesity, diseases of skeletal muscle, paraplegia or quadriplegia, vegetarian diet, rapidly changing kidney function, and calculation of the dose of potentially toxic drugs that are excreted by the kidneys. 19 Updated Reference Range 20 Per NCEP ATP III Guidelines: Results lower than 40 mg/dL are suggestive of increased risk for coronary artery disease. Results > or=to 60 mg/dL are considered a negative risk factor. 21 Per NCEP ATP III Guidelines: Normal Population <130 Patients with medical conditions: CHD/DM Optimal: <100 Borderline high: 130-159 High: 160-189 Very high: >189 22 before visit 07/2017 23 Per NCEP ATP III Guidelines: Results lower than 40 mg/dL are suggestive of increased risk for coronary artery disease. Results > or=to 60 mg/dL are considered a negative risk factor. 24 Per NCEP ATP III Guidelines: Normal Population <130 Patients with medical conditions: CHD/DM Optimal: <100 Borderline high: 130-159 High: 160-189 Very high: >189 25 Beginning 05/12/06 PSA values assayed at [facility] uses chemiluminescence methodology manufactured by [employer] for use on the DXI analyzer. Values obtained with different assay methods or kits can not be used interchangeably. Serum PSA measurement is not an absolute test for malignancy. The PSA value should be used in conjunction with information available from clinical evaluation and other diagnostic procedures. 26 Updated reference range on new analyzer 27 Updated reference range on new analyzer 28 Concerning GFR Guidelines for Americans: Normal function or mild renal disease, if clinically at risk: >/=60 mL/min Moderately decreased: 30-59 Severely decreased: 15-29 Renal failure: <15 29 Concerning GFR Guidelines: Normal function or mild renal disease, if clinically at risk: >/=60 mL/min Moderately decreased: 30-59 Severely decreased: 15-29 Renal failure: <15 Glomerular Filtration Rate (GFR) is estimated based on the MDRD equation, which assumes a steady state for creatinine as recommended by the National Kidney Disease Education Program in conjunction with the National Institutes of Health and the National Kidney Foundation. Clinical conditions in which it may be necessary to measure GFR by using clearance methods include extremes of age and body size, severe malnutrition or obesity, diseases of skeletal muscle, paraplegia or quadriplegia, vegetarian diet, rapidly changing kidney function, and calculation of the dose of potentially toxic drugs that are excreted by the kidneys. 30 Updated Reference Range 31 Updated reference range on new analyzer 32 Updated reference range on new analyzer 33 Concerning GFR Guidelines for Americans: Normal function or mild renal disease, if clinically at risk: >/=60 mL/min Moderately decreased: 30-59 Severely decreased: 15-29 Renal failure: <15 34 Concerning GFR Guidelines: Normal function or mild renal disease, if clinically at risk: >/=60 mL/min Moderately decreased: 30-59 Severely decreased: 15-29 Renal failure: <15 Glomerular Filtration Rate (GFR) is estimated based on the MDRD equation, which assumes a steady state for creatinine as recommended by the National Kidney Disease Education Program in conjunction with the National Institutes of Health and the National Kidney Foundation. Clinical conditions in which it may be necessary to measure GFR by using clearance methods include extremes of age and body size, severe malnutrition or obesity, diseases of skeletal muscle, paraplegia or quadriplegia, vegetarian diet, rapidly changing kidney function, and calculation of the dose of potentially toxic drugs that are excreted by the kidneys. 35 Updated reference range on new analyzer 36 Per NCEP ATP III Guidelines: Results lower than 40 mg/dL are suggestive of increased risk for coronary artery disease. Results > or=to 60 mg/dL are considered a negative risk factor. 37 Per NCEP ATP III Guidelines: Normal Population <130 Patients with medical conditions: CHD/DM Optimal: <100 Borderline high: 130-159 High: 160-189 Very high: >189 38 Updated reference range on new analyzer 39 Updated reference range on new analyzer 40 Concerning GFR Guidelines for Americans: Normal function or mild renal disease, if clinically at risk: >/=60 mL/min Moderately decreased: 30-59 Severely decreased: 15-29 Renal failure: <15 41 Concerning GFR Guidelines: Normal function or mild renal disease, if clinically at risk: >/=60 mL/min Moderately decreased: 30-59 Severely decreased: 15-29 Renal failure: <15 Glomerular Filtration Rate (GFR) is estimated based on the MDRD equation, which assumes a steady state for creatinine as recommended by the National Kidney Disease Education Program in conjunction with the National Institutes of Health and the National Kidney Foundation. Clinical conditions in which it may be necessary to measure GFR by using clearance methods include extremes of age and body size, severe malnutrition or obesity, diseases of skeletal muscle, paraplegia or quadriplegia, vegetarian diet, rapidly changing kidney function, and calculation of the dose of potentially toxic drugs that are excreted by the kidneys. 42 Updated reference range on 43 SPECIMENS TESTING POSITIVE OR EQUIVOCAL FOR LYME IGG/IGM MAY BE DUE TO LYME DISEASE OR A VARIETY OF OTHER CLINICAL CONDITIONS. THEREFORE, THESE SPECIMENS ARE REFERRED TO A REFERENCE LABORATORY FOR WESTERN IMMUNOBLOT TESTING. PLEASE REFER TO THE REFERENCE LABORATORY SECTION OF THE REPORT FOR THESE RESULTS. Unless otherwise specified, testing performed [place] [address] 44 Positive Reference range: Negative Band(s) present: 93, 66, 58, 41, 39, 23, 18 kDa INTERPRETIVE INFORMATION: B. burgdorferi IgG Immunoblot For this assay, a positive result is reported when any 5 or more of the following 10 bands are present: 18, 23, 28, 30, 39, 41, 45, 58, 66, or 93 kDa. All other banding patterns are reported as negative. 45 Positive Reference range: Negative Band(s) present: 41, 39, 23 kDa INTERPRETIVE INFORMATION: B. burgdorferi Antibody IgM Immunoblot For this assay, a positive result is reported when any 2 or more of the following bands are present: 23, 39, or 41 kDa. All other banding patterns are reported as negative. Performed by [facility], [address] [place] [id number] [email or web address], Johann Yen MD, Lab. Director Unless otherwise specified, testing performed [place] [address] 46 TROPONIN LEVELS TWO TIMES THE UPPER LIMIT OF NORMAL ARE MORE PREDICTIVE OF MYOCARDIAL INFARCTION THAN LESSER ELEVATIONS WHICH CAN BE DUE TO MYOCARDIAL DAMAGE OR STRUCTURAL HEART DISEASE IN THE ABSENCE OF ANY ACUTE PROCESS ([facility] 361:9, 2008) PERFORMED BY [facility] CLINICAL STAFF Unless otherwise specified, testing [place] [address] 47 Unless otherwise specified, testing [place] [address] 48 Updated reference range on new analyzer 49 Updated reference range on new analyzer 50 Concerning GFR Guidelines for Americans: Normal function or mild renal disease, if clinically at risk: >/=60 mL/min Moderately decreased: 30-59 Severely decreased: 15-29 Renal failure: <15 51 Concerning GFR Guidelines: Normal function or mild renal disease, if clinically at risk: >/=60 mL/min Moderately decreased: 30-59 Severely decreased: 15-29 Renal failure: <15 Glomerular Filtration Rate (GFR) is estimated based on the MDRD equation, which assumes a steady state for creatinine as recommended by the National Kidney Disease Education Program in conjunction with the National Institutes of Health and the National Kidney Foundation. Clinical conditions in which it may be necessary to measure GFR by using clearance methods include extremes of age and body size, severe malnutrition or obesity, diseases of skeletal muscle, paraplegia or quadriplegia, vegetarian diet, rapidly changing kidney function, and calculation of the dose of potentially toxic drugs that are excreted by the kidneys. 52 Updated reference range on new analyzer 53 SPECIMENS TESTING POSITIVE OR EQUIVOCAL FOR LYME IGG/IGM MAY BE DUE TO LYME DISEASE OR A VARIETY OF OTHER CLINICAL CONDITIONS. THEREFORE, THESE SPECIMENS ARE REFERRED TO A REFERENCE LABORATORY FOR WESTERN IMMUNOBLOT TESTING. PLEASE REFER TO THE REFERENCE LABORATORY SECTION OF THE REPORT FOR THESE RESULTS. Unless otherwise specified, testing performed [place] [address] 54 Positive Reference range: Negative Band(s) present: 93, 58, 45, 41, 23, 18 kDa INTERPRETIVE INFORMATION: B. burgdorferi IgG Immunoblot For this assay, a positive result is reported when any 5 or more of the following 10 bands are present: 18, 23, 28, 30, 39, 41, 45, 58, 66, or 93 kDa. All other banding patterns are reported as negative. 55 Positive Reference range: Negative Band(s) present: 41, 39, 23 kDa INTERPRETIVE INFORMATION: B. burgdorferi Antibody IgM Immunoblot For this assay, a positive result is reported when any 2 or more of the following bands are present: 23, 39, or 41 kDa. All other banding patterns are reported as negative. Performed by [facility], [address] [place] [id number] [email or web address], Johann Yen MD, Lab. Director Unless otherwise specified, testing performed by [facility] [address] [place] [id number] 56 Fastin hours 57 Updated reference range on new analyzer 58 Updated reference range on new analyzer 59 Concerning GFR Guidelines for Americans: Normal function or mild renal disease, if clinically at risk: >/=60 mL/min Moderately decreased: 30-59 Severely decreased: 15-29 Renal failure: <15 60 Concerning GFR Guidelines: Normal function or mild renal disease, if clinically at risk: >/=60 mL/min Moderately decreased: 30-59 Severely decreased: 15-29 Renal failure: <15 Glomerular Filtration Rate (GFR) is estimated based on the MDRD equation, which assumes a steady state for creatinine as recommended by the National Kidney Disease Education Program in conjunction with the National Institutes of Health and the National Kidney Foundation. Clinical conditions in which it may be necessary to measure GFR by using clearance methods include extremes of age and body size, severe malnutrition or obesity, diseases of skeletal muscle, paraplegia or quadriplegia, vegetarian diet, rapidly changing kidney function, and calculation of the dose of potentially toxic drugs that are excreted by the kidneys. 61 Updated reference range on new analyzer 62 Per NCEP ATP III Guidelines: Results lower than 40 mg/dL are suggestive of increased risk for coronary artery disease. Results > or=to 60 mg/dL are considered a negative risk factor. 63 Per NCEP ATP III Guidelines: Normal Population <130 Patients with medical conditions: CHD/DM Optimal: <100 Borderline high: 130-159 High: 160-189 Very high: >189 64 Beginning 05/12/06 PSA values assayed at [facility] uses chemiluminescence methodology manufactured by [employer] for use on the DXI analyzer. Values obtained with different assay methods or kits can not be used interchangeably. Serum PSA measurement is not an absolute test for malignancy. The PSA value should be used in conjunction with information available from clinical evaluation and other diagnostic procedures. 65 Concerning GFR Guidelines for Americans: Normal function or mild renal disease, if clinically at risk: >/=60 mL/min Moderately decreased: 30-59 Severely decreased: 15-29 Renal failure: <15 66 Concerning GFR Guidelines: Normal function or mild renal disease, if clinically at risk: >/=60 mL/min Moderately decreased: 30-59 Severely decreased: 15-29 Renal failure: <15 Glomerular Filtration Rate (GFR) is estimated based on the MDRD equation, which assumes a steady state for creatinine as recommended by the National Kidney Disease Education Program in conjunction with the National Institutes of Health and the National Kidney Foundation. Clinical conditions in which it may be necessary to measure GFR by using clearance methods include extremes of age and body size, severe malnutrition or obesity, diseases of skeletal muscle, paraplegia or quadriplegia, vegetarian diet, rapidly changing kidney function, and calculation of the dose of potentially toxic drugs that are excreted by the kidneys. 67 Per NCEP ATP III Guidelines: Results lower than 40 mg/dL are suggestive of increased risk for coronary artery disease. Results > or=to 60 mg/dL are considered a negative risk factor. 68 Per NCEP ATP III Guidelines: Normal Population <130 Patients with medical conditions: CHD/DM Optimal: <100 Borderline high: 130-159 High: 160-189 Very high: >189 69 This sample is drawn by: EC pt verified labels and initialed test tubes 70 Concerning GFR Guidelines for Americans: Normal function or mild renal disease, if clinically at risk: >/=60 mL/min Moderately decreased: 30-59 Severely decreased: 15-29 Renal failure: <15 71 Concerning GFR Guidelines: Normal function or mild renal disease, if clinically at risk: >/=60 mL/min Moderately decreased: 30-59 Severely decreased: 15-29 Renal failure: <15 Glomerular Filtration Rate (GFR) is estimated based on the MDRD equation, which assumes a steady state for creatinine as recommended by the National Kidney Disease Education Program in conjunction with the National Institutes of Health and the National Kidney Foundation. Clinical conditions in which it may be necessary to measure GFR by using clearance methods include extremes of age and body size, severe malnutrition or obesity, diseases of skeletal muscle, paraplegia or quadriplegia, vegetarian diet, rapidly changing kidney function, and calculation of the dose of potentially toxic drugs that are excreted by the kidneys. 72 Per NCEP ATP III Guidelines: Results lower than 40 mg/dL are suggestive of increased risk for coronary artery disease. Results > or=to 60 mg/dL are considered a negative risk factor. 73 Per NCEP ATP III Guidelines: Normal Population <130 Patients with medical conditions: CHD/DM Optimal: <100 Borderline high: 130-159 High: 160-189 Very high: >189 74 Concerning GFR Guidelines for Americans: Normal function or mild renal disease, if clinically at risk: >/=60 mL/min Moderately decreased: 30-59 Severely decreased: 15-29 Renal failure: <15 75 Concerning GFR Guidelines: Normal function or mild renal disease, if clinically at risk: >/=60 mL/min Moderately decreased: 30-59 Severely decreased: 15-29 Renal failure: <15 Glomerular Filtration Rate (GFR) is estimated based on the MDRD equation, which assumes a steady state for creatinine as recommended by the National Kidney Disease Education Program in conjunction with the National Institutes of Health and the National Kidney Foundation. Clinical conditions in which it may be necessary to measure GFR by using clearance methods include extremes of age and body size, severe malnutrition or obesity, diseases of skeletal muscle, paraplegia or quadriplegia, vegetarian diet, rapidly changing kidney function, and calculation of the dose of potentially toxic drugs that are excreted by the kidneys. 76 Per NCEP ATP III Guidelines: Results lower than 40 mg/dL are suggestive of increased risk for coronary artery disease. Results > or=to 60 mg/dL are considered a negative risk factor. 77 Per NCEP ATP III Guidelines: Normal Population <130 Patients with medical conditions: CHD/DM Optimal: <100 Borderline high: 130-159 High: 160-189 Very high: >189 78 Laboratory [place] [address] Surgical Pathology Report Specimen(s) Received A: Right calf shave biopsy B: Left calf excision C: Left calf excision deep Clinical Diagnosis and History A) Uncertain how long present, due to lesion on left calf, we felt a shave biopsy for diagnosis was warranted. Right calf 6 x 8 mm lesion. B) Two specimens, a more superficial skin excision. 2.5 x 1.5 cm, for lesion about 7 mm in size, given 3-4 mm margins. As I dissected the skin off, realized the depth of the shave biopsy was deeper than this excision. C As above, this is a repeat excision of the same skin specimen to the muscular layer, to confirm a full thickness excision. See prior skin biopsy specimen. Gross Description Specimen A received in formalin labeled "right calf shave biopsy" is a 1.0 x 1.0 cm irregular, pale pichardo, skin shave fragment. The specimen is inked, sectioned and totally submitted in one cassette. Specimen B received in formalin labeled "excision of left calf biopsy" is an unoriented elliptical skin excision measuring 2.3 x 1.0 x a depth of 0.2 cm. The resection margin is inked black. The skin shows a well demarcated pichardo crusted lesion with a central full thickness defect measuring 1.0 x 0.8 x 0.3 cm. The lesion abuts the resection margin. The specimen is sectioned and sequentially submitted in two cassettes. Specimen C received in formalin labeled "reexcision of left calf biopsy deep" is an irregular pichardo-pink to pichardo-yellow and lobulated soft tissue fragment measuring 2.0 x 0.9 x 0.3 cm. A resection margin cannot be determined. The specimen is serially sectioned and totally submitted in two cassettes. (The measurements of the specimen(s) may be less than those in vivo due to tissue shrinkage during histologic fixation and processing.) jgl eb/jrf Diagnosis A) SKIN, RIGHT CALF, SHAVE BIOPSY: Superficial skin shave showing changes consistent with underlying fibrous dermatofibroma (benign fibrous histiocytoma). Only the superficial portion of the neoplasm has been sampled by this shave biopsy. Multiple levels examined. B) SKIN, LEFT CALF, EXCISION BIOPSY: Dermatofibroma (benign fibrous histiocytoma). The benign neoplasm is noted to focally extend to the inked deep margin of resection. Changes consistent with previous biopsy site are noted, including epidermal ulceration with overlying inflamed scale crust. Multiple levels examined. C) SKIN, LEFT CALF, DEEPER RE-EXCISION : Dermis and subcutis showing a small amount of residual dermatofibroma/benign fibrous histiocytoma. The new inked deep (subcutaneous) margin of resection appears to be free of benign fibrous histiocytoma in the planes of section examined. Multiple levels examined. Technical component processed at [facility], Histopathology, [address] [place] [address], [id number]. Diagnosis and reporting performed at [facility], [address] [place] [address]. Reported: 08/02/2014 14:04 Electronically Signed Out By Bob Jean-Baptiste M.D. paw ICD9 Codes 216.9 Unless otherwise specified, testing performed by [facility] [address] [address] [address] [place] [address] Surgical Pathology Report Specimen(s) Received A: Left posterior calf Clinical Diagnosis and History Shave biopsy, new lesion, 8 x 8 mm, present uncertain length of time, rule out cancer vs. seborrheic keratosis Gross Description Specimen received in formalin labeled "left lower left shave biopsy" is a 0.8 x 0.8 cm irregular, granular, pale pichardo skin shave fragment. The specimen is inked, sectioned and totally submitted in one cassette. 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 This is somewhat supported by immunohistochemical staining, which reveals the spindle cell proliferation to be positive for Factor XIIIa, and negative for S-100, Sox10, Beta-catenin, and actin. However, the tumor cells are also positive for CD34 (generally negative in dermatofibroma). The spindle cell proliferation extends to the inked deep margin of the specimen. Multiple levels examined. See comment. Comments These findings are most consistent with dermatofibroma. However, the CD34 positivity raises the possibility of an underlying dermatofibrosarcoma protuberans, which can simulate a dermatofibroma in a superficial biopsy. Because of this possibility, complete excision of this lesion would be prudent, so that the entire neoplasm can be examined histologically. This case was discussed with Dr. Saucedo. Technical component processed at [facility], Histopathology, [address] [place] [address], [id number]. Diagnosis and reporting performed at [facility], [address] [place] [address]. Reported: 07/22/2014 16:22 Electronically Signed Out By Bob Jean-Baptiste M.D. paw ICD9 Codes 238.2 Unless otherwise specified, testing performed by [facility] [address] [place] [id number] Fastin hours 81 Concerning GFR Guidelines for Americans: Normal function or mild renal disease, if clinically at risk: >/=60 mL/min Moderately decreased: 30-59 Severely decreased: 15-29 Renal failure: <15 82 Concerning GFR Guidelines: Normal function or mild renal disease, if clinically at risk: >/=60 mL/min Moderately decreased: 30-59 Severely decreased: 15-29 Renal failure: <15 Glomerular Filtration Rate (GFR) is estimated based on the MDRD equation, which assumes a steady state for creatinine as recommended by the National Kidney Disease Education Program in conjunction with the National Institutes of Health and the National Kidney Foundation. Clinical conditions in which it may be necessary to measure GFR by using clearance methods include extremes of age and body size, severe malnutrition or obesity, diseases of skeletal muscle, paraplegia or quadriplegia, vegetarian diet, rapidly changing kidney function, and calculation of the dose of potentially toxic drugs that are excreted by the kidneys. 83 Per NCEP ATP III Guidelines: Results lower than 40 mg/dL are suggestive of increased risk for coronary artery disease. Results > or=to 60 mg/dL are considered a negative risk factor. 84 Per NCEP ATP III Guidelines: Normal Population <130 Patients with medical conditions: CHD/DM Optimal: <100 Borderline high: 130-159 High: 160-189 Very high: >189 85 Beginning 05/12/06 PSA values assayed at [facility] uses an EIA methodology manufactured by [employer] for use on the DXI analyzer. Values obtained with different assay methods or kits can not be used interchangeably. Serum PSA measurement is not an absolute test for malignancy. The PSA value should be used in conjunction with information available from clinical evaluation and other diagnostic procedures. 86 FASTING fasting 5 days prior to next visit 87 For -Maldivian patients multiply result by 1.180 88 FASTING fasting 5 days prior to next visit 89 For -Maldivian patients multiply result by 1.180 Procedures Date Code Description Status 03/27/2018 21558 Remove Skin Tags Up To 15 Completed 03/05/2018 22604 Measure Blood Oxygen Level Single Determination Completed 09/23/2017 [id number] Colonoscopy Completed 08/06/2016 04728 Electrocardiogram Complete Completed 08/06/2016 23657 X-Ray Knee Complete W/Obliques & Tunnel And/Or Standing Completed Views 07/28/2014 40560 Repair Wound Complex 1.1-2.5CM Scalp/Arm/Leg Completed 07/28/2014 41677 Excise Malig Lesion 1.1-2CM Trunk/Arm/Leg Completed 07/28/2014 89235 Excise Benign Lesion 1.1-2CM Trunk/Arm/Leg Completed 07/28/2014 72673 Shave Skin Lesion .6-1CM Trunk/Arm/Leg Completed 07/19/2014 83257 Shave Skin Lesion .6-1CM Trunk/Arm/Leg Completed 07/12/2014 54236 Electrocardiogram Complete Completed Encounters Type Date Location Provider Dx Diagnosis Office Visit 03/05/2018 [facility] Daniela Painting PA J20.9 Acute bronchitis, 11:15a unspecified Z68.33 Body mass index (BMI) 33.0-33.9, adult Office Visit 02/18/2018 8:30a [facility] Jacinta Saucedo MD L91.8 Other hypertrophic disorders of the skin I10 Essential (primary) hypertension E78.2 Mixed hyperlipidemia R97.20 Elevated prostate specific antigen [PSA] M10.9 Gout, unspecified N40.0 Benign prostatic hyperplasia without lower urinry tract symp M54.5 Low back pain K21.9 Gastro-esophageal reflux disease without esophagitis N52.9 Male erectile dysfunction, unspecified Z87.891 Personal history of nicotine dependence Z71.89 Other specified counseling Z68.33 Body mass index (BMI) 33.0-33.9, adult Office Visit 08/27/2017 9:30a [facility] Jacinta Saucedo MD Z00.00 Encntr for general adult medical exam w/o abnormal findings A69.20 Lyme disease, unspecified I10 Essential (primary) hypertension E78.2 Mixed hyperlipidemia M10.9 Gout, unspecified N40.0 Benign prostatic hyperplasia without lower urinry tract symp M54.5 Low back pain K21.9 Gastro-esophageal reflux disease without esophagitis N52.9 Male erectile dysfunction, unspecified K63.5 Polyp of colon F43.20 Adjustment disorder, unspecified Z87.891 Personal history of nicotine dependence Z68.33 Body mass index (BMI) 33.0-33.9, adult Office Visit 08/18/2017 4:15p [facility] Jacinta Saucedo MD A69.20 Lyme disease, unspecified Z68.33 Body mass index (BMI) 33.0-33.9, adult Office Visit 02/10/2017 10:15a [facility] Jacinta Saucedo MD A69.20 Lyme disease, unspecified R94.6 Abnormal results of thyroid function studies I10 Essential (primary) hypertension E78.2 Mixed hyperlipidemia M10.9 Gout, unspecified M54.5 Low back pain K21.9 Gastro-esophageal reflux disease without esophagitis N40.0 Benign prostatic hyperplasia without lower urinry tract symp N52.9 Male erectile dysfunction, unspecified K63.5 Polyp of colon F43.20 Adjustment disorder, unspecified Office Visit 01/20/2017 3:15p [facility] Jacinta Saucedo MD A69.20 Lyme disease, unspecified A69.22 Other neurologic disorders in Lyme disease Office Visit 10/22/2016 4:00p [facility] Jacinta Saucedo MD A69.20 Lyme disease, unspecified A69.22 Other neurologic disorders in Lyme disease 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 Office Visit 10/08/2016 10:45a [facility] Daniela Painting PA M54.5 Low back pain S30.861A Insect bite (nonvenomous) of abdominal wall, init encntr R10.84 Generalized abdominal pain Office Visit 08/06/2016 9:30a [facility] Jacinta Saucedo MD M25.561 Pain in RIGHT knee Z00.00 Encntr for general adult medical exam w/o abnormal findings I10 Essential (primary) hypertension E78.2 Mixed hyperlipidemia M10.9 Gout, unspecified K21.9 Gastro-esophageal reflux disease without esophagitis N40.0 Benign prostatic hyperplasia without lower urinry tract symp N52.9 Male erectile dysfunction, unspecified K63.5 Polyp of colon M54.5 Low back pain Z12.5 Encounter for screening for malignant neoplasm of prostate Z12.11 Encounter for screening for malignant neoplasm of colon Z68.32 Body mass index (BMI) 32.0-32.9, adult Office Visit 01/26/2016 8:30a [facility] Jacinta Saucedo MD I10 Essential ( primary) hypertension E78.2 Mixed hyperlipidemia K21.9 Gastro-esophageal reflux disease without esophagitis M10.9 Gout, unspecified N40.0 Benign prostatic hyperplasia without lower urinry tract symp N52.9 Male erectile dysfunction, unspecified D51.3 Other dietary vitamin B12 deficiency anemia K63.5 Polyp of colon M54.5 Low back pain Z68.32 Body mass index (BMI) 32.0-32.9, adult Z11.59 Encounter for screening for other viral diseases Z13.6 Encounter for screening for cardiovascular disorders Office Visit 07/25/2015 1:30p [facility] Jacinta Saucedo MD N52.9 Male erectile dysfunction, unspecified I10 Essential (primary) hypertension E78.2 Mixed hyperlipidemia M10.9 Gout, unspecified K21.9 Gastro-esophageal reflux disease without esophagitis N40.0 Enlarged prostate without lower urinary tract symptoms D51.3 Other dietary vitamin B12 deficiency anemia K63.5 Polyp of colon M54.5 Low back pain Z00.00 Encntr for general adult medical exam w/o abnormal findings Z12.5 Encounter for screening for malignant neoplasm of prostate Z12.11 Encounter for screening for malignant neoplasm of colon Z68.32 Body mass index (BMI) 32.0-32.9, adult Office Visit 01/09/2015 8:45a [facility] Jacinta Saucedo MD I10 Essential ( primary) hypertension E78.2 Mixed hyperlipidemia K21.9 Gastro-esophageal reflux disease without esophagitis D51.3 Other dietary vitamin B12 deficiency anemia M10.9 Gout, unspecified N40.0 Enlarged prostate without lower urinary tract symptoms Z23 Encounter for immunization Z68.31 Body mass index (BMI) 31.0-31.9, adult Office Visit 07/12/2014 9:30a [facility] Jacinta Saucedo MD 401.1 Hypertension Benign 274.9 Gout Unspec 530.81 Esophageal Reflux 600.00 Hypertrophy Prostate W/O Urinary Obstruction & Other Luts 211.3 Benign Neoplasm Colon V70.0 Exam (Adult) General Medical Routine AT Health Care Facility V76.51 Special Screening For Malignant Neoplasms Colon V76.44 Screening For Malig Oniel Prostate V04.89 Need For Prophylactic Vaccination & Inoculation Other Virus 266.9 Vitamin B Deficiency Unspec 272.2 Hyperlipidemia Mixed V85.31 BMI Body Mass Index 31.0-31.9 Adult 238.2 Neoplasm Uncertain Skin Determined By Pathology Plan of Treatment Future Appointment(s):03/03/2019 2:00 pm - Jacinta Saucedo MD at [facility]/2018 - Jacinta Saucedo MDZ00.01 Encounter for general adult medical examination with abnormaComments:Well adult male.Imms reviewedtdap is current 2013no reason for pneumovaxzostavax done per pt, may get shingrix after onsider hep a for travelrecommend annual flu vax Recommend periodic optho examination for eye health. Recommend colon cancer screening as discussed.Discussed prostate cancer. screening.Recommend periodic dental exam. Healthy lifestyle recommendations: Encouraged healthy diet withmeats simply prepared, fresh fruits and veg when able also simply prepared, whole grains, 3 dairies per day non fat. Adults should take additional vit d 600 iu beyond their food sources, with a meal with meat/fat/oil. Encouraged daily exercise 30 - 60 min daily, moderate to vigorous.Encouraged 3 qrtstotal fluid per day, with most being water, and more for sweaty exercise. [employer] 7-8 hours of sleep at night. Limit your alcohol to < 2 per day. Don't smoke or use tobacco. Following a healthy lifestyle will reduce your risk for cardiovascular disease, the leading cause of , as well as many other illnesses.Follow up:next visit in 6 mo for oc15 (but confirm no medicare for welcome visit) and nonfasting labs 5 days xyqfeI12.2 Mixed hyperlipidemiaNew Labs:Comprehensive Met Panel-[facility], Ordered: 08/28/18CPK, Ordered: 08/28/18Lipid, Ordered: Comments:high cholpatient is higher risk per AHA guidelines and assessment LDL shows a 30-50% reductioncontinue current meds. monitor for side effects of muscle aches or crampswe watch for liver effects with labsPlease call if you have any concerns.aspirin 81mg daily is also recommended. For lifestyle, we alsorecommend: Low fat ( under 30gm per day), low chol diet ( under 300mg per day chol)focus on lean meat, nonfat 1% dairy, increased veg and fruit, whole grains weight lossexercise build to at least 30minper day. Reviewed signs and symptoms of cardiovascular disease.K21.9 Gastro-esophageal reflux disease without esophagitisNew Labs:Vitamin B12, Ordered: 08/28/18Magnesium, Ordered: Comments:GERD/esophagitis--Symptoms moderately well controlled on current acid amarjit therapy. Reminded pt we need to control the symptoms as those symptoms would be signs of gastric acid eroding on the esophagus, which can lead to complications. Call if has heartburn more than 2 - 3 times per week. Pt should take meds to control any break through symptoms. Please be sure to take your acid amarjit 30minbefore a meal. Cautioned risks for malabsorption certain vits, c diff colitis diarrhea and possiblelong term risks for dementia, cardiovascular disease kidney disease, use the lowest effective dose Recommend he try to taper, take one every other day for 1-2 months, then take only as needed.M10.9 Gout, unspecifiedNew Labs:Uric Acid, Ordered: 08/28/18Comments:gout --continue meds, symptoms controlled, uric acid over 6, recheck periodically - - goal under 6 should take allopurinol 200mg daily seek care/call if symptoms occur more often than 1 every 2 weeks if has flare ups then take the colchicine.I10 Essential (primary) hypertensionComments:Htn--BPs appear stable and in good control, reminded goal of BP < 130/80 ideally per new guidelines. Continue current meds, please call for medication side effects such as cough, rash or any concerns. Encouraged diet modified in fat and no added salt. Limit alcohol to < 1 per day. Encouraged regular exercise of 30 min most days per week. Encouraged pt to continue to monitor BP and call if > 140/90 on a regular basis. Please call if you feel your blood pressure is under 110 systolicand/or causing you symptoms such as dizziness, lightheadedness , or other concerns.D48.5 Neoplasm of uncertain behavior of skinComments:some brown without significant white crustingobserveconsider cryo if develops white crusting, pencileraser sized, or any that is quickly changing, itching, gmqeaztI91.13 Tinnitus, bilateralComments:TinnitusThis symptom is a noise that occurs often in the range of a pitch of a nerve that may be dying. It's associated with hearing loss.He admits alot of noise exposure. Seek care if this is persistent or steadily progressive for ENT to make sure there are no other serious signs or symptoms such that mri for schwannoma or other cause would be considered necessary. He declines referral recommend hearing protection Other causes can be noise exposure or familial tendency.N40.0 Benign prostatic hyperplasia without lower urinary tract symComments:bph--no change in exam, continue to observe Advised pt that prostate palpates large. He has no sxs. Advised pt to watch for nocturia, hesitancy, dribbling, or other uro sxs that might be related. Rechk annually.M54.5 Low back painComments:low back paindoing wellN52.9 Male erectile dysfunction, unspecifiedComments:impotence. gets headaches with sildenafil sometimes. he wonders about cialis, advised insurance coverage is sometimes an issue Reviewed side effects. Call prn concerns, continue meds. Discussed libido is different from EDZ87.891 Personal history of nicotine dependenceComments:Former smoker, not a candidate for lung cancer screening based on history Seek care for persistent cough, unexpected weight loss/fatigue, coughing up blood as these can be signs of lung tkqaawL34.5 Polyp of colonComments:Pt with h/o colon polyps, last colonoscopy 2017Next colonoscopy due 5 years. Referral done to Dr Ramesh Please call for blood in stool, changes in bowel habits, any concerns. Colonoscopy can still miss polyps.Z12.5 Encounter for screening for malignant neoplasm of prostateComments:PSA normal. Exam normal but for mimimal enlargement. Call for new/concerning sxs.E66.9 Obesity, unspecifiedComments:continue to work on diet, exercise, weight lossZ68.33 Body mass index (BMI) 33.0-33.9, adultComments :recommend reduced calorie diet, regular exercise and weight loss
[2018-09-09 12:31] VITALS: BP 124/59
--- NOTE | 2018-09-09 12:43 | UC ---
Throat Pain/Nasal Vamshi HPI - HPI Summary HPI Summary: 62-year-old male comes in with a chief complaint of sore throat. He started with upper respiratory tract infection symptoms more than a week and a half ago. No chest congestion or shortness of breath at this time. Is have some rhinorrhea that is yellow. Patient's main complaint is discussed sore throat. It hurts when he swallows. He's been using throat lozenges which do help decrease the pain. No recent fevers. - History of Current Complaint Chief Complaint: UCGeneralIllness Stated Complaint: ST Time Seen by Provider: 09/09/18 12:16 Pain Intensity: 7 - Allergies/Home Medications Allergies/Adverse Reactions: Allergies Allergy/AdvReac Type Severity Reaction Status Date / Time No Known Allergies Allergy Verified 09/09/18 12:26 Home Medications: Home Medications Allopurinol TAB* [Zyloprim 100 MG TAB*] 100 mg PO DAILY 09/09/18 [History Confirmed 09/09/18] Aspirin EC TAB* [Ecotrin EC Low Dose 81 MG*] 81 mg PO DAILY 09/09/18 [History Confirmed 09/09/18] Atorvastatin* [Lipitor*] 10 mg PO DAILY 09/09/18 [History Confirmed 09/09/18] Colchicine* [Colcrys*] 0.6 - 1.2 mg PO SEE INSTRUCTIONS PRN 09/09/18 [History Confirmed 09/09/18] Glucosam/Chondr/Collagn/Hyalur [Th Glucosamine/Chondroiti] 1 cap PO DAILY [History Confirmed 09/09/18] Indomethacin ER* [Indocin ER] 75 mg PO DAILY PRN 09/09/18 [History Confirmed ] Lisinopril TAB* [Prinivil TAB*] 20 mg PO DAILY 09/09/18 [History Confirmed 09/09] Omeprazole CAP (NF) [Prilosec CAP* 20 MG] 20 mg PO DAILY 09/09/18 [History Confirmed 09/09/18] Vitamin THERAPEUTIC TAB* [Theragran TAB*] 1 tab PO DAILY 09/09/18 [History Confirmed 09/09/18] PMH/Surg Hx/FS Hx/Imm Hx Previously Healthy: Yes - GOUT, LYME DX Endocrine History: Dyslipidemia Cardiovascular History: Hypertension GI/ History: Gastroesophageal Reflux - Surgical History Surgical History: None - Family History Known Family History: Positive: Non-Contributory - Social History Alcohol Use: None Substance Use Type: None Smoking Status (MU): Former Smoker Length of Time of Smoking/Using Tobacco: 1 PPD x 10 Years When Did the Patient Quit Smoking/Using Tobacco: ~1988 Review of Systems All Other Systems Reviewed And Are Negative: Yes Constitutional: Positive: Negative Skin: Positive: Negative Eyes: Positive: Negative ENT: Positive: Sore Throat, Nasal Discharge, Sinus Congestion Respiratory: Positive: Negative Cardiovascular: Positive: Negative Gastrointestinal: Positive: Negative Motor: Positive: Negative Neurovascular: Positive: Negative Musculoskeletal: Positive: Negative Neurological: Positive: Negative Psychological: Positive: Negative Is Patient Immunocompromised?: No Physical Exam Triage Information Reviewed: Yes Appearance: Well-Appearing, No Pain Distress, Well-Nourished Vital Signs: Initial Vital Signs Temp 98.4 F 09/09/18 12:21 Pulse 86 09/09/18 12:21 Resp 16 09/09/18 12:21 BP 124/59 09/09/18 12:21 Pulse Ox 97 09/09/18 12:21 Vital Signs Reviewed: Yes Eye Exam: Normal Eyes: Positive: Conjunctiva Clear ENT: Positive: Pharyngeal erythema, Nasal congestion, TMs normal, Tonsillar swelling, Uvula midline. Negative: Muffled voice, Hoarse voice Neck: Positive: Supple Respiratory: Positive: Lungs clear, Normal breath sounds, No respiratory distress Cardiovascular: Positive: RRR Musculoskeletal: Positive: Strength Intact, ROM Intact Neurological: Positive: Alert, Muscle Tone Normal Psychological Exam: Normal Psychological: Positive: Age Appropriate Behavior Skin Exam: Normal Throat Pain/Nasal Course/Dx - Course Course Of Treatment: SX > 10 DAYS, THEREFORE RX ABX. DISCUSSED VIRAL VERSES BACTERIAL INFECTION AND THE ROLE OF ANTIBIOTICS. THE PATIENT PREFERS TO BE ON ANTIBIOTICS AT THIS TIME. - Differential Dx/Diagnosis Provider Diagnosis: Pharyngitis Discharge - Sign-Out/Discharge Documenting (check all that apply): Patient Departure All imaging exams completed and their final reports reviewed: No Studies - Discharge Plan Condition: Stable Disposition: HOME Prescriptions: Amoxicillin PO (*) [Amoxicillin 875 MG (*)] 875 mg PO BID #20 tab Patient Education Materials: Pharyngitis (ED) Referrals: Jacinta Saucedo MD [Primary Care Provider] - Additional Instructions: FOLLOW UP WITH YOUR DOCTOR IF NOT COMPLETELY IMPROVED. GET RECHECKED SOONER IF YOUR CONDITION WORSENS OR ANY QUESTIONS OR CONCERNS. - Billing Disposition and Condition Condition: STABLE Disposition: Home
== END 2018-09-09 12:50 | disposition home or self-care (01) ==
LOC: UCCORT 12:07
DX: J02.9 Acute pharyngitis, unspecified (principal); I10 Essential (primary) hypertension; E78.5 Hyperlipidemia, unspecified; M10.9 Gout, unspecified; K21.9 Gastro-esophageal reflux disease without esophagitis; Z87.891 Personal history of nicotine dependence
CPT/HCPCS: 87651; 99202; G0463